=== PATIENT | female | born 1995 | race American Indian/Alaskan Native ===

== ENCOUNTER 2017-11-09 00:38 | Emergency (ER) | payer SELFPAY ==
[2017-11-09 01:34] VITALS: BP 112/77
[2017-11-09 02:00] LABS: Basophils % (Auto) 0.5 % (0.0-1.8); Eosinophils % (Auto) 0.4 % (0.0-4.3); Hematocrit 38.7 % (30.3-42.9); Hemoglobin 12.4 gm/dl (10.1-14.3); Lymphocytes # (Auto) 2.3 K/mm3 (1.2-5.4); Lymphocytes % (Auto) 41.9 % (13.4-35.0); Mean Corpuscular HGB Conc 32 % (30-34); Monocytes # (Auto) 0.5 K/mm3 (0.0-0.8); Monocytes % (Auto) 8.9 % (0.0-7.3); Platelet Count 190 K/mm3 (140-440); Red Blood Count 5.63 M/mm3 (3.65-5.03); Red Cell Distribution Width 15.6 % (13.2-15.2)
[2017-11-09 02:30] LABS: Mean Corpuscular Hemoglobin 22 pg (28-32); Mean Corpuscular Volume 69 fl (79-97)
--- NOTE | 2017-11-09 03:40 | Ultrasound Report ---
FINAL REPORT EXAM: US OB TRANSVAGINAL, US OB < = 14 WEEKS FETUS. HISTORY: Vaginal bleeding. Positive . TECHNIQUE: Directed transabdominal and transvaginal ultrasound examination of the pelvis was performed. No prior studies are available for comparison. FINDINGS: The patient reports her last menstrual period 10/12/2017, corresponding to current gestational age of 4 weeks, 0 days. The uterus is anteverted on the transvaginal images, and measures 4.3 x 4.1 x 7.6 cm. The endometrium measures approximately 1.0 cm in thickness. There is no intrauterine gestation identified, with no gestational sac, yolk sac, or pole seen currently. The right ovary measures 1.5 x 1.3 x 2.0 cm, and the left ovary measures 1.6 x 1.5 x 2.4 cm. Normal appearing subcentimeter follicles are seen in both ovaries. There is appropriate color doppler flow within both ovaries. No other adnexal mass is seen. There is no significant pelvic free fluid. IMPRESSION: 1. No intrauterine gestation identified. These findings may represent normal early intrauterine gestation or abnormal early intrauterine gestation. Correlation with serial quantitative HCG levels is recommended, and follow-up ultrasound in 7-14 days is also suggested. 2. Normal sonographic appearance of the bilateral ovaries.
--- NOTE | 2017-11-09 04:18 | Emergency Department Report ---
ED HPI - General Chief complaint: Vaginal Bleeding Stated complaint: VAG BLEED 5 WEEKS Time Seen by Provider: 11/09/17 04:10 Source: patient Mode of arrival: Ambulatory Limitations: No Limitations - History of Present Illness Initial comments: [id number] [place] female is one comes in stating that she is 5 weeks and is having vaginal spotting and abdominal cramping since 1700 yesterday. Patient reports that the pain was sharp at that time. Patient reports that her pain has improved and is a 5 out of 10. Patient reports that she is followed by [facility]. She reports that she had a hCG from her OB about 5 days ago that was positive for . Reports no past medical history currently takes no medications and has no known drug allergies. Patient does report she has an appointment on Saturday for follow-up urine. MD Complaint: vaginal bleeding -: Sudden Time: 17:00 Location: pelvis Radiation: none Severity: moderate Severity scale (0 -10): 6 Quality: stabbing Consistency: intermittent Improves with: none Worsens with: none Associated symptoms: vaginal bleeding Vaginal bleeding: heavy :: Yes Number of weeks : 5 OB History - Current : no complications Last menstrual period: 10/12/17 Pre-joanna care: followed by OB ([facility]) - Related Data : 1 Home Medications Medication Instructions Recorded Confirmed Last Taken No Known Home Medications [No 11/09/17 11/09/17 Unknown Reported Home Medications] Allergies Allergy/AdvReac Type Severity Reaction Status Date / Time No Known Allergies Allergy Unverified 11/09/17 01:34 ED Review of Systems ROS: Stated complaint: VAG BLEED 5 WEEKS Other details as noted in HPI Constitutional: denies: chills, fever Eyes: denies: eye pain, eye discharge, vision change ENT: denies: ear pain, throat pain Respiratory: denies: cough, shortness of breath, wheezing Cardiovascular: denies: chest pain, palpitations Endocrine: no symptoms reported Gastrointestinal: denies: abdominal pain, nausea, diarrhea Genitourinary: other (vaginal bleeding with cramps). denies: urgency, dysuria, discharge Musculoskeletal: denies: back pain, joint swelling, arthralgia Skin: denies: rash, lesions Neurological: denies: headache, weakness, paresthesias Psychiatric: denies: anxiety, depression Hematological/Lymphatic: denies: easy bleeding, easy bruising ED Past Medical Hx - Past Medical History Previous Medical History?: No - Surgical History Past Surgical History?: No - Social History Smoking Status: Never Smoker Substance Use Type: Marijuana - Medications Home Medications: Home Medications Medication Instructions Recorded Confirmed Last Taken Type No Known Home Medications [No 11/09/17 11/09/17 Unknown History Reported Home Medications] ED Physical Exam - General Limitations: No Limitations General appearance: alert, in no apparent distress - Head Head exam: Present: atraumatic, normocephalic - Eye Eye exam: Present: normal appearance - ENT ENT exam: Present: mucous membranes moist - Neck Neck exam: Present: normal inspection - Respiratory Respiratory exam: Present: normal lung sounds bilaterally. Absent: respiratory distress - Cardiovascular Cardiovascular Exam: Present: regular rate, normal rhythm. Absent: systolic murmur, diastolic murmur, rubs, gallop - GI/Abdominal GI/Abdominal exam: Present: soft, normal bowel sounds - Extremities Exam Extremities exam: Present: normal inspection - Back Exam Back exam: Present: normal inspection - Neurological Exam Neurological exam: Present: alert, oriented X3 - Psychiatric Psychiatric exam: Present: normal affect, normal mood - Skin Skin exam: Present: warm, dry, intact, normal color. Absent: rash ED Course Vital Signs 11/09/17 01:29 Temperature 98.2 F Pulse Rate 73 Respiratory 16 Rate Blood Pressure 112/77 O2 Sat by Pulse 100 Oximetry ED Medical Decision Making - Lab Data Result diagrams: 11/09/17 01:41 - Radiology Data Radiology results: report reviewed, image reviewed Ultrasound OB transvaginal: Impression: 1. No intrauterine gestation identified. These findings may represent normal early intrauterine gestation or abnormal early intrauterine gestation. Correlation with serial quantitative hCG levels is recommended, and follow up ultrasound in 7-14 days is also suggested. #2. Normal sonography appearance of the bilateral ovaries - Medical Decision Making Patient has been evaluated by this provider in fast track. Patient reports that her cramping is improving. Patient reported that she has an appointment on Saturday at [facility] for follow-up urine . Discussed the patient she can take Tylenol for pain. Discussed the patient she needs to take all of her discharge information and lab report as well as imaging to her PEDIATRIC OPHTHALMOLOGIST provider. Patient verbalized understanding. Critical care attestation.: If time is entered above; I have spent that time in minutes in the direct care of this critically ill patient, excluding procedure time. ED Disposition Clinical Impression: Vaginal spotting Disposition: DC- TO HOME OR SELFCARE Is pt being admited?: No Does the pt Need Aspirin: No Condition: Stable Instructions: Threatened Miscarriage (ED) Additional Instructions: Please take all of your discharge paperwork to your PEDIATRIC OPHTHALMOLOGIST provider on Saturday at [facility]. You can take Tylenol for any pains and cramps. Referrals: TOMA JOEL MD [Primary Care Provider] - 3-5 Days Forms: Work/School Release Form(ED), Accompanied Note
[2017-11-09 05:05] LABS: Bilirubin,Urine NEG (Negative); Blood,Urine LG (Negative); Color,Urine Yellow (Yellow); Mucus,Urine FEW /HPF; Protein,Urine <15 mg/dL mg/dL (Negative); Urobilinogen,Urine < 2.0 mg/dL (<2.0)
== END 2017-11-09 04:47 | disposition home or self-care (01) ==
LOC: ED 00:38
DX: O26.851 Spotting complicating pregnancy, first trimester (principal); O26.891 Other specified pregnancy related conditions, first trimester; R10.9 Unspecified abdominal pain; F12.10 Cannabis abuse, uncomplicated; Z3A.01 Less than 8 weeks gestation of pregnancy
CPT/HCPCS: 36415; 76801; 76817; 81001; 84702; 85025; 86850; 86900; 86901

== ENCOUNTER 2018-09-03 14:30 | Emergency (ER) | payer BC ==
[2018-09-03] MEDS ORDERED: NACL 0.9% 1000 ML 1,000 ML IV ONE ×3 (14:47→18:28)
[2018-09-03 15:24] LABS: Monocytes # (Auto) 0.4 K/mm3 (0.0-0.8); Monocytes % (Auto) 5.6 % (0.0-7.3)
[2018-09-03 15:36] LABS: Alanine Aminotransferase 10 units/L (7-56); Albumin 4.5 g/dL (3.9-5); BUN/Creatinine Ratio 18; Blood Urea Nitrogen 11 mg/dL (7-17); Calcium 9.7 mg/dL (8.4-10.2); Hemolysis Index 8
[2018-09-03 15:44] LABS: Hemoglobin 14.8 gm/dl (10.1-14.3)
[2018-09-03 15:45] LABS: Hematocrit 46.8 % (30.3-42.9); Mean Corpuscular Volume 71 fl (79-97)
[2018-09-03 15:50] LABS: Basophils % (Auto) 0.2 % (0.0-1.8); Mean Corpuscular HGB Conc 32 % (30-34); Platelet Count 242 K/mm3 (140-440); Red Cell Distribution Width 14.8 % (13.2-15.2)
[2018-09-03 15:51] LABS: Lymphocytes # (Auto) 0.7 K/mm3 (1.2-5.4)
[2018-09-03] MEDS ORDERED: ZOFRAN IV ONE ×3 (17:23→18:28)
[2018-09-03 17:58] LABS: Bilirubin,Urine NEG (Negative); Blood,Urine NEG (Negative); Color,Urine Yellow (Yellow); Mucus,Urine 2+ /HPF; Urobilinogen,Urine < 2.0 mg/dL (<2.0)
--- NOTE | 2018-09-03 18:29 | Emergency Department Report ---
HPI - General Chief Complaint: Nausea/Vomiting/Diarrhea Time Seen by Provider: 09/03/18 16:42 - HPI HPI: This is a 22-year-old female percent CAD complaining of nausea vomiting and loss of appetite for the past week. Patient states her last visit. Was 07/27/2018 is essentially has not cycle. She states she feels dehydrated and weak because she has not been able to if the past 3 days. Since that she is unable to keep food down due to nausea. He denies fevers/chills/abdominal pain, shortness of breath, chest pain ED Past Medical Hx - Past Medical History Previous Medical History?: No - Surgical History Past Surgical History?: No - Social History Smoking Status: Never Smoker Substance Use Type: None - Medications Home Medications: Home Medications Medication Instructions Recorded Confirmed Last Taken Type Doxylamine Succinate/Vit B6 2 each PO QHS #40 tablet.dr 09/03/18 Unknown Rx [Diclegis Dr 10-10 mg Tablet] Pnv No.103/Folic/Om3s/Fish Oil 1 each PO DAILY #30 tab.chew 09/03/18 Unknown Rx [ Gummies] ED Review of Systems ROS: Stated complaint: FLU SYMPTOMS Other details as noted in HPI Constitutional: denies: chills, fever Eyes: denies: eye pain, eye discharge, vision change ENT: denies: ear pain, throat pain Respiratory: denies: cough, shortness of breath, wheezing Cardiovascular: denies: chest pain, palpitations Endocrine: no symptoms reported Gastrointestinal: denies: abdominal pain, nausea, diarrhea Genitourinary: denies: urgency, dysuria, discharge Musculoskeletal: denies: back pain, joint swelling, arthralgia Skin: denies: rash, lesions Neurological: denies: headache, weakness, paresthesias Psychiatric: denies: anxiety, depression Hematological/Lymphatic: denies: easy bleeding, easy bruising Physical Exam - Physical Exam Vital Signs: Vital Signs 09/03/18 14:44 Temperature 98.1 F Pulse Rate 95 H Respiratory 18 Rate Blood Pressure 152/94 O2 Sat by Pulse 99 Oximetry Physical Exam: GENERAL: Alert and oriented x3, no apparent distress, Normal Gait, atraumatic. HEAD: Head is normocephalic and a-traumatic. MOUTH:Mouth is well hydrated and without lesions. NECK: Supple. Non edematous, No carotid bruits. No lymphadenopathy or thyromegaly. No C-spine tenderness LUNGS: Symetrical with respiration, No wheezing, no rales or crackles, CTAB. HEART: S1, S2 present, regular rate and rhythm without murmur, no rubs, no gallops. Non tender to palpation ABDOMEN: No organomegaly was noted,Positive bowel sounds, soft, and non- distended. . Nontender to palpation on all Quadrants, NO CVA tenderness. BACK: Full range of motion, no spinal tenderness, nontender to palpation. SKIN: Warm and dry, No lesions, No ulceration or induration present. ED Course Vital Signs 09/03/18 14:44 Temperature 98.1 F Pulse Rate 95 H Respiratory 18 Rate Blood Pressure 152/94 O2 Sat by Pulse 99 Oximetry ED Medical Decision Making - Lab Data Result diagrams: 09/03/18 14:55 09/03/18 14:55 Laboratory Last Values WBC 7.3 K/mm3 (4.5-11.0) 09/03/18 14:55 RBC 6.60 M/mm3 (3.65-5.03) H 09/03/18 14:55 Hgb 14.8 gm/dl (10.1-14.3) H 09/03/18 14:55 Hct 46.8 % (30.3-42.9) H 09/03/18 14:55 MCV 71 fl (79-97) L 09/03/18 14:55 MCH 22 pg (28-32) L 09/03/18 14:55 MCHC 32 % (30-34) 09/03/18 14:55 RDW 14.8 % (13.2-15.2) 09/03/18 14:55 Plt Count 242 K/mm3 (140-440) 09/03/18 14:55 Lymph % (Auto) 10.0 % (13.4-35.0) L 09/03/18 14:55 [place] % (Auto) 5.6 % (0.0-7.3) 09/03/18 14:55 Eos % (Auto) 0.0 % (0.0-4.3) 09/03/18 14:55 Baso % (Auto) 0.2 % (0.0-1.8) 09/03/18 14:55 Lymph # 0.7 K/mm3 (1.2-5.4) L 09/03/18 14:55 [place] # 0.4 K/mm3 (0.0-0.8) 09/03/18 14:55 Eos # 0.0 K/mm3 (0.0-0.4) 09/03/18 14:55 Baso # 0.0 K/mm3 (0.0-0.1) 09/03/18 14:55 Add Manual Diff Complete 09/03/18 14:55 Seg Neutrophils % 84.2 % (40.0-70.0) H 09/03/18 14:55 Seg Neutrophils # 6.1 K/mm3 (1.8-7.7) 09/03/18 14:55 Sodium 138 mmol/L (137-145) 09/03/18 14:55 Potassium 3.9 mmol/L (3.6-5.0) 09/03/18 14:55 Chloride 100.4 mmol/L (98-107) 09/03/18 14:55 Carbon Dioxide 21 mmol/L (22-30) L 09/03/18 14:55 Anion Gap 21 mmol/L 09/03/18 14:55 BUN 11 mg/dL (7-17) 09/03/18 14:55 Creatinine 0.6 mg/dL (0.7-1.2) L 09/03/18 14:55 Estimated GFR > 60 ml/min 09/03/18 14:55 BUN/Creatinine Ratio 18 % 09/03/18 14:55 Glucose 91 mg/dL (65-100) 09/03/18 14:55 Calcium 9.7 mg/dL (8.4-10.2) 09/03/18 14:55 Total Bilirubin 0.70 mg/dL (0.1-1.2) 09/03/18 14:55 AST 16 units/L (5-40) 09/03/18 14:55 ALT 10 units/L (7-56) 09/03/18 14:55 Alkaline Phosphatase 75 units/L (35-129) 09/03/18 14:55 Total Protein 8.0 g/dL (6.3-8.2) 09/03/18 14:55 Albumin 4.5 g/dL (3.9-5) 09/03/18 14:55 Albumin/Globulin Ratio 1.3 % 09/03/18 14:55 Lipase 8 units/L (13-60) L 09/03/18 14:55 HCG, Quant 15437 mIU/mL (0-4) H 09/03/18 14:55 Urine Color Yellow (Yellow) 09/03/18 17:09 Urine Turbidity Slightly-cloudy (Clear) 09/03/18 17:09 Urine pH 5.0 (5.0-7.0) 09/03/18 17:09 Ur Specific [place] 1.036 (1.003-1.030) H 09/03/18 17:09 Urine Protein 30 mg/dl mg/dL (Negative) 09/03/18 17:09 Urine Glucose (UA) 50 mg/dL (Negative) 09/03/18 17:09 Urine Ketones 80 mg/dL (Negative) 09/03/18 17:09 Urine Blood Neg (Negative) 09/03/18 17:09 Urine Nitrite Neg (Negative) 09/03/18 17:09 Urine Bilirubin Neg (Negative) 09/03/18 17:09 Urine Urobilinogen < 2.0 mg/dL (<2.0) 09/03/18 17:09 Ur Leukocyte Esterase Neg (Negative) 09/03/18 17:09 Urine WBC (Auto) 3.0 /HPF (0.0-6.0) 09/03/18 17:09 Urine RBC (Auto) 2.0 /HPF (0.0-6.0) 09/03/18 17:09 U Epithel Cells (Auto) 7.0 /HPF (0-13.0) 09/03/18 17:09 Urine Mucus 2+ /HPF 09/03/18 17:09 - Medical Decision Making 22-year-old female presents with nausea vomiting and . Patient received 2 L of fluids, Zofran ODT. Patient was able to tolerate crackers and applesauce and water while in the ED. Discussed to take nausea medication as prescribed. Discussed frequent hydration and frequent. She again with this . Discussed follow-up with [facility] as referred. Vital signs are normal patient is in no acute distress showed a sinus instructions given Critical care attestation.: If time is entered above; I have spent that time in minutes in the direct care of this critically ill patient, excluding procedure time. ED Disposition Clinical Impression: , Nausea and vomiting during Disposition: DC-01 TO HOME OR SELFCARE Is pt being admited?: No Does the pt Need Aspirin: No Condition: Stable Instructions: Morning Sickness (ED), (ED) Additional Instructions: Make sure to follow up with the [facility] as discussed. Take all your medications as you've been prescribed. If you have any worsening symptoms or develop new symptoms please return to ED immediately. Prescriptions: Doxylamine Succinate/Vit B6 [Андрей Huitron 10-10 mg Tablet] 2 each PO QHS #40 tablet.dr Isbell No.103/Folic/Om3s/Fish Oil [ Gummies] 1 each PO DAILY #30 tab.chew Referrals: PRIMARY CAREMD [Primary Care Provider] - 3-5 Days KESHAV SMITH MD [Referring] - 3-5 Days [facility] [Provider Group] - 3-5 Days [facility] [Provider Group] - 3-5 Days Forms: Accompanied Note, Work/School Release Form(ED) Time of Disposition: 19:30
[2018-09-03 20:18] VITALS: BP 114/62
== END 2018-09-03 19:45 | disposition home or self-care (01) ==
LOC: ED 14:30
DX: O21.8 Other vomiting complicating pregnancy (principal); Z3A.01 Less than 8 weeks gestation of pregnancy
CPT/HCPCS: 36415; 80053; 81001; 83690; 84702; 85025; 96361; 96374; 96376; 99283; J2405; J7030